=== PATIENT | female | born 1975 | race Caucasian/White ===

== ENCOUNTER 2020-06-13 06:07 | Day surgery (SDC) | payer MEDICARE, MEDICAID, SELFPAY ==
[2020-06-09 16:31] VITALS: BMI 31.8
--- NOTE | 2020-06-12 13:04 | HO.ANESPROP2 ---
Documented by User: Lyubov Prieto 06/12/20 13:08 HPI - Anesthesia Eval Consult details Narrative: 44yo F for Cervical Spinal Cord Simulation Trial s/p thoracic spinal stim implant 02/2020 with [facility] Past Medical History Medical History Asthma Cervical post-laminectomy syndrome Smoker Surgical History Surgical History H/O neck surgery History of back surgery Hx of foot surgery S/P insertion of spinal cord stimulator Social History Social History Alcohol intake: never Smoking Status: Current every day smoker Cigarettes Per Day: 8 Use of substances other than those prescribed or required for medical reasons: No Advance Directives: No Advance Directives Information Provided: No Advance Directives on File: No Meds Allergies Allergy/AdvReac Type Severity Reaction Status Date / Time bupropion [From WELLBUTRIN] Allergy Unknown UPSET Verified 06/09/20 16:23 STOMACH carbamazepine [From TEGRETOL] Allergy Unknown Rash Verified 06/09/20 16:23 cyclobenzaprine Allergy Unknown Rash Verified 06/09/20 16:23 [From FLEXERIL] gabapentin [GABAPENTIN] Allergy Unknown Rash Verified 06/09/20 16:23 latex [LATEX] Allergy Unknown HIVES Verified 06/09/20 16:23 venlafaxine [From EFFEXOR] Allergy Unknown Rash Verified 06/09/20 16:23 barium sulfate AdvReac Unknown Hot Verified 11/22/19 00:00 sweats/nightmares varenicline [From Chantix] AdvReac Nightmare Verified 06/09/20 16:23 tape adhesive Allergy Unknown Rash Uncoded 06/09/20 16:23 Home Medications Medication Instructions Recorded Confirmed Type albuterol sulfate [ProAir HFA] 2 puff INHALATION Q4-6H PRN 06/09/20 06/09/20 History Exam Exam Date and Time: June 12, 2020 1304 Height,Weight and Vital Signs: Height 5 ft 7 in Weight 92.3 kg Assessment and Plan Assessment Anesthesia Assessment: Chart Reviewed Documented by User: Gail Sullivan 06/13/20 07:19 PMFSH Past Medical History Medical History Asthma Cervical post-laminectomy syndrome Smoker Surgical History Surgical History H/O neck surgery History of back surgery Hx of foot surgery S/P insertion of spinal cord stimulator Social History Social History Alcohol intake: never Smoking Status: Current every day smoker Cigarettes Per Day: 8 Use of substances other than those prescribed or required for medical reasons: No Advance Directives: No Advance Directives Information Provided: No Advance Directives on File: No Meds Allergies Allergy/AdvReac Type Severity Reaction Status Date / Time bupropion [From WELLBUTRIN] Allergy Unknown UPSET Verified 06/09/20 16:23 STOMACH carbamazepine [From TEGRETOL] Allergy Unknown Rash Verified 06/09/20 16:23 cyclobenzaprine Allergy Unknown Rash Verified 06/09/20 16:23 [From FLEXERIL] gabapentin [GABAPENTIN] Allergy Unknown Rash Verified 06/09/20 16:23 latex [LATEX] Allergy Unknown HIVES Verified 06/09/20 16:23 venlafaxine [From EFFEXOR] Allergy Unknown Rash Verified 06/09/20 16:23 barium sulfate AdvReac Unknown Hot Verified 11/22/19 00:00 sweats/nightmares varenicline [From Chantix] AdvReac Nightmare Verified 06/09/20 16:23 tape adhesive Allergy Unknown Rash Uncoded 06/09/20 16:23 Home Medications Medication Instructions Recorded Confirmed Type albuterol sulfate [ProAir HFA] 2 puff INHALATION Q4-6H PRN 06/09/20 06/09/20 History Exam Airway Mallampati Class: II TM Dist: >3cm Neck ROM: Full
--- NOTE | 2020-06-12 18:20 | P.HPSUR_ITS ---
Pre-Procedural Eval Section A The patient is an INPATIENT: No The History & Physical has been completed within 30 days and I have reviewed it.: No Section B Chief Complaint: Cervical Post Laminectomy Syndrome Details of Present Illness: Cervicalgia spondylosis of cervical spine Allergies: Allergies Allergy/AdvReac Type Severity Reaction Status Date / Time bupropion [From WELLBUTRIN] Allergy Unknown UPSET Verified 06/09/20 16:23 STOMACH carbamazepine [From TEGRETOL] Allergy Unknown Rash Verified 06/09/20 16:23 cyclobenzaprine Allergy Unknown Rash Verified 06/09/20 16:23 [From FLEXERIL] gabapentin [GABAPENTIN] Allergy Unknown Rash Verified 06/09/20 16:23 latex [LATEX] Allergy Unknown HIVES Verified 06/09/20 16:23 venlafaxine [From EFFEXOR] Allergy Unknown Rash Verified 06/09/20 16:23 barium sulfate AdvReac Unknown Hot Verified 11/22/19 00:00 sweats/nightmares varenicline [From Chantix] AdvReac Nightmare Verified 06/09/20 16:23 tape adhesive Allergy Unknown Rash Uncoded 06/09/20 16:23 Review of Systems Sugical H&P ROS: Negative: Constitution, Cardiovascular, Respiratory, Neurological, Psychiatric, Hem-Onc, Allergic/Immunologic, Gastrointestinal, Genitourinary, Musculoskeletal, Integumentary, Endocrine and Eyes/Ears/Nose/Throat Exam Surgical H&P Exam: Normal: HEENT, Normal: Heart, Normal: Lungs, Normal: Extremi ties, Normal: Abdomen, Normal: Skin and Normal: Neurological Plan Diagnosis/Plan: Unchanged Patient has been examined and remains a candidate for the planned procedure
--- NOTE | 2020-06-12 18:22 | W.PM.OPN ---
Operative Note Operative Note Date of Service: 06/13/20 Narrative: Ms. is very pleasant years old lady who came today into the operating room for trial of spinal cord stimulator for the treatment of post laminectomy. Preoperatively patient received approximately before procedure. After obtaining informed consent patient was brought to the operating room, SHE was positioned prone on operating table, Citizen Of [employer] [place] [employer]hes[employer] monitors were applied and patient was deeply sedated. The patient was taken inside of the operating room where she was positioned prone operating table. Time-out was performed delineating correct site, side, the nature of the procedure, patient's allergy, preoperative antibiotic if needed. All operating room staff was participating in OR time-out procedure. Patient's entire back was prepped with ChloraPrep twice and draped with full body fenestrated drape. Sterilely draped C-arm was brought over operating field and sqare picture of T11-T12 L1 L2 vertebrae as were demonstrated on the screen. Attention FIRST was concentrated on the epidural interspace. The location of the projection of the right pedicle center of the ___ vertebra was found on the skin using C-arm. This location was injected with mixture of lidocaine 2% and Marcaine 0.5% 5 cc. After that 11 blade was used to make a jose carlos on the skin. ____ cm 14 gauge curved introducer epidural needle was inserted through the jose carlos and advanced to epidural interspace. The advancement of the needle was performed on anterior posterior and lateral views. Guitar wire and loss of resistance technique were used to locate epidural space. When guitar wire was spread in the epidural fashion, epidural lead was inserted through the skin and it was advanced to T8 position PRACTICALLY, SLIGHTLY LEFT, SLIGHTLY RIGHT OF THE MIDLINE. After that location of the projection of the LEFT pedicle center of the ____vertebra was found on the skin using C-arm. This location was injected with mixture of lidocaine 2% and Marcaine 0.5% 5 cc. After that 11 blade was used to make a jose carlos on the skin. cm 14 gauge curved introducer epidural needle was inserted through the jose carlos and advanced to epidural interspace. The advancement of the needle was performed on anterior posterior and lateral views. Guitar wire and loss of resistance technique were used to locate epidural space. When guitar wire was spread in the epidural fashion, epidural lead was inserted through the needle and advanced to the At this moment patient was awaken and the epidural leads were connected to the testing device. The patient reported stimulation corresponding to her pain. After satisfactory position of the leads were established the needles were withdrawn, the stylette wires were removed from the epidural leads. The anchoring devices were dislodged on the leads and advanced to the level of the skin. The anchoring devices were sutured with two 0-0 silk sutures to the skin of the patient. The leads were connected to testing device. Bacitracin ointment was applied to the entrance point of bilateral needles. Sterile dressing was applied to the patient's back. The testing device was also glued to the patient's back.
[2020-06-13] VITALS (8 sets, daily range): BP systolic 104–134; BP diastolic 54–92; PULSE 65–95; RESP 12–18; TEMP 36.2–36.3; O2SAT 97–100
[2020-06-13] MEDS: ceFAZolin Sodium/Dextrose,Iso 2 GM/50 ML PIGGYBACK IV (06:46)
[2020-06-13] MEDS: Lactated Ringers 1,000 ML 100 ML IVCONT (06:46)
--- NOTE | 2020-06-13 07:10 | FL_ITS ---
EXAMINATION: XR FLUOROSCOPY WITH IMAGES CLINICAL INFORMATION: Cervical spinal cord stimulation trial COMPARISON: Fluoroscopic spot views 02/22/2020 TECHNIQUE: Fluoroscopy performed by Dr. Moses Hebert. Fluoroscopy time: 2.4 minutes DAP: 16.1 Gycm2 Images: 3 FINDINGS: There are 2 metallic stimulator electrodes seen ascending the posterior spinal canal with the tips approximately overlying mid aspect C2. FL/FL guidance in OR IMPRESSION: Fluoroscopy for pain management procedure.
[2020-06-13 07:24] LABS: UPreg QC Valid YES; Urine Pregnancy NEGATIVE (NEGATIVE)
--- NOTE | 2020-06-13 09:45 | P.BOP_ITS ---
Brief Operative Note Date of Service: 06/13/20 Pre-op diagnosis: Cervical postlaminectomy syndrome Post-op diagnosis: same Procedure: trial of cervical spinal cord stimulator 2 leads [employer]. Implants: None permanent Surgeon: Moses Hebert MD Anesthesia: GLMA Estimated blood loss (mL): 0 Pathology: none sent Condition: stable Disposition: PACU
--- NOTE | 2020-06-13 09:46 | P.OP_ITS ---
Operative Note Operative Note Date of Service: 06/13/20 Narrative: Narrative: Ms. Myers is very pleasant 44 years old lady who came today into the operating room for trial of spinal cord stimulator for the treatment of post laminectomy syndrome cervical.. Preoperatively patient rec eived Antibiotics as per anesthesia record.approximately 30 minutes to 1 hour before procedure. After obtaining informed consent patient was brought to the operating room, SHE was positioned prone on operating table, [place] [employer] monitors were applied and patient was deeply sedated. The patient was taken inside of the operating room where she was positioned prone operating table. Time-out was performed delineating correct site, side, the nature of the procedure, patient's allergy, preoperative antibiotic if needed. All operating room staff was participating in OR time-out procedure. Patient's entire back was prepped with ChloraPrep twice and draped with full body fenestrated drape. Sterilely draped C-arm was brought over operating field and sqare picture of T6-T7 T8 vertebrae as were demonstrated on the screen. Attention FIRST was concentrated on the T6-[id number] interspace. The location of the projection of the right pedicle center of the T8 vertebra was found on the skin using C-arm. This location was injected with mixture of lidocaine 2% and Marcaine 0.5% 5 cc. After that 11 blade was used to make a jose carlos on the skin. 10 cm 14 gauge curved introducer epidural needle was inserted through the jose carlos and advanced to T6-[id number] interspace. the patient was unable to tolerate the minimal stimulation. Anesthesiologist inserted LMA in prone position in induced general anesthesia. The advancement of the needle was performed on anterior posterior and lateral views. Guitar wire and loss of resistance technique were used to locate epidura l space. When guitar wire was spread in the epidural fashion, epidural lead was inserted through the skin and it was advanced to C3 -C4 position , SLIGHTLY RIGHT OF THE MIDLINE. After that location of the projection of the LEFT pedicle center of the T8 vertebra was found on the skin using C-arm. This location was injected with mixture of lidocaine 2% and Marcaine 0.5% 5 cc. After that 11 blade was used to make a jose carlos on the skin. 10 cm 14 gauge c Boby[place]agan introducer epidural needle was inserted through the jose carlos and advanced to T6-T7 interspace. The advancement of the needle was performed on anterior posterior and lateral views. Guitar wire and loss of resistance technique were used to locate epidural space. When guitar wire was spread in the epidural fashion, epidural lead was inserted through the needle and advanced to the C3-C4 cervical epidural space slightly right to existing midline position lead. Due to the patient being under general anesthesia the wake cup test was not performed impedance was checked. After that the needles were withdrawn, the stylette wires were removed from the epidural leads. The anchoring devices were dislodged on the leads and advanced to the level of the skin. The anchoring devices were sutured with two 0-0 silk sutures to the skin of the patient. The leads were connected to testing device. Bacitracin ointment was applied to the entrance point of bilateral needles. Sterile dressing was applied to the patient's back. The testing device was also glued to the patient's back.
--- NOTE | 2020-06-13 10:12 | HO.POSTANES ---
Post Anesthesia Evaluation Post Anesthesia Evaluation Vital Signs: Vital Signs Temp Pulse Resp BP Pulse Ox 06/13/20 09:51 78 18 112/58 L 100 06/13/20 09:46 74 16 112/54 L 98 06/13/20 09:41 69 16 104/63 98 06/13/20 09:36 97.2 F 74 12 122/91 H 97 06/13/20 06:34 97.3 F 95 16 134/78 97 Anesthesia: General LMA Mental Status: Awake Pain Control: Satisfactory Nausea/Vomiting: None Hydration: Adequate Anesthesia-Related Issues: No Anes. Related Issues
== END 2020-06-13 11:05 | disposition home or self-care (01) ==
PROVIDERS: Nurse Practitioner; PCP Nurse Practitioner Family; Visit Provider Anesthesiology
PROC: (CPT 63650; principal; 2020-06-13 07:30)
DX: M96.1 Postlaminectomy syndrome, not elsewhere classified (principal); M47.892 Other spondylosis, cervical region; G89.4 Chronic pain syndrome; F32.9 Major depressive disorder, single episode, unspecified; J45.909 Unspecified asthma, uncomplicated; Z87.891 Personal history of nicotine dependence; Z88.8 Allergy status to other drugs, medicaments and biological substances; Z91.040 Latex allergy status
CPT/HCPCS: 63650 ×2; 81025; C1897; J0690; J2250; J2405

== ENCOUNTER → 2020-06-19 12:58 | Outpatient (BNVA) | payer MEDICARE, MEDICAID, SELFPAY | PROVIDERS: PCP Nurse Practitioner Family; Referring Provider Nurse Practitioner Family; Visit Provider Anesthesiology | DX: M96.1 Postlaminectomy syndrome, not elsewhere classified (principal); G89.4 Chronic pain syndrome | CPT/HCPCS: 99212 ==

== ENCOUNTER 2020-07-19 07:45 | Outpatient (REF) | payer MEDICARE, MEDICAID, SELFPAY ==
--- NOTE | 2020-07-19 07:48 | MM_ITS ---
EXAMINATION: MM SCREENING DIGITAL BREAST TOMOSYNTHESIS, BILATERAL CLINICAL INFORMATION: Screening. Asymptomatic. The lifetime risk of breast cancer based on the Tyrer-Cuzick Model is 18%. COMPARISON: Mammography: 07/14/2019, 07/08/2018, 09/25/2016 TECHNIQUE: Digital breast tomosynthesis is performed in both the craniocaudal and mediolateral oblique views along with computer-aided detection (CAD). Synthesized 2D images are generated from the tomosynthesis. Additional exaggerated right CC view is provided. FINDINGS: There are scattered areas of fibroglandular density (ACR BI-RADS breast composition Category b). There are no significant masses, abnormal calcifications, or other abnormalities. Parenchymal pattern is similar to prior studies. MM/MM tomosynthesis screening BI IMPRESSION: No mammographic evidence of malignancy. ASSESSMENT: BI-RADS 1: Negative RECOMMENDATION: Routine annual mammography screening. This patient's information was entered into a reminder system with a target due date for their next mammogram.
== END 2020-07-19 07:46 | disposition home or self-care (01) ==
LOC: HO.MAMMO 07:45
PROVIDERS: PCP Nurse Practitioner Family; Visit Provider Nurse Practitioner Family
DX: Z12.31 Encounter for screening mammogram for malignant neoplasm of breast (principal)
CPT/HCPCS: 77063; 77067

== ENCOUNTER 2020-10-24 07:25 | Day surgery (SDC) | payer MEDICARE, MEDICAID, SELFPAY ==
--- NOTE | 2020-10-22 13:24 | HO.ANESPROP2 ---
Documented by User: Lyubov Ida 10/22/20 13:25 HPI - Anesthesia Eval Consult details Narrative: 44yo F for Cervical Spinal Cord Stimulation Implant s/p trial 06/2020 with [facility] (converted from MAC because pt couldn't tolerate pain without comprising respiration) PMFSH Active Problems Active Problems: All Active Problems (Updated 06/19/20 @ 13:26 by Moses Hebert MD) Chronic pain syndrome (Acute) Cervical post-laminectomy syndrome (Acute) Past Medical History Medical History Anxiety Asthma Cervical post-laminectomy syndrome Cervical vertebral fusion Chronic pain syndrome Chronic pain syndrome Depression Smoker Surgical History Surgical History H/O cervical discectomy H/O neck surgery History of back surgery Hx of foot surgery S/P insertion of spinal cord stimulator Social History Social History Alcohol intake: never Smoking Status: Current every day smoker Cigarettes Per Day: 8 Advance Directives: No Advance Directives Information Provided: Yes Recently lost weight without trying: No Meds Allergies Allergy/AdvReac Type Severity Reaction Status Date / Time bupropion [From WELLBUTRIN] Allergy Unknown UPSET Verified 10/20/20 11:02 STOMACH carbamazepine [From TEGRETOL] Allergy Unknown Rash Verified 10/20/20 11:02 cyclobenzaprine Allergy Unknown Rash Verified 10/20/20 11:02 [From FLEXERIL] gabapentin [GABAPENTIN] Allergy Unknown Rash Verified 10/20/20 11:02 latex [LATEX] Allergy Unknown HIVES Verified 10/20/20 11:02 venlafaxine [From EFFEXOR] Allergy Unknown Rash Verified 10/20/20 11:02 barium sulfate AdvReac Unknown Hot Verified 10/20/20 11:02 sweats/nightmares varenicline [From Chantix] AdvReac Nightmare Verified 10/20/20 11:02 tape adhesive Allergy Unknown Rash Uncoded 10/20/20 11:02 Home Medications Medication Instructions Recorded Confirmed Last Taken Type adapalene 0.1 % topical cream appl TOPICAL 06/19/20 06/19/20 Unknown History clindamycin phosphate 1 % lotion TOPICAL BEDTIME 06/19/20 06/19/20 Unknown History Exam Exam Date and Time: October 22, 2020 1324 Assessment and Plan Assessment Anesthesia Assessment: Chart Reviewed Documented by User: Natasha Foote 10/24/20 09:03 [facility] Past Medical History Medical History Anxiety Asthma Cervical post-laminectomy syndrome Cervical vertebral fusion Chronic pain syndrome Chronic pain syndrome Depression Smoker Surgical History Surgical History H/O cervical discectomy H/O neck surgery History of back surgery Hx of foot surgery S/P insertion of spinal cord stimulator Social History Social History Alcohol intake: never Smoking Status: Current every day smoker Cigarettes Per Day: 8 Advance Directives: No Advance Directives Information Provided: Yes Recently lost weight without trying: No Meds Allergies Allergy/AdvReac Type Severity Reaction Status Date / Time bupropion [From WELLBUTRIN] Allergy Unknown UPSET Verified 10/20/20 11:02 STOMACH carbamazepine [From TEGRETOL] Allergy Unknown Rash Verified 10/20/20 11:02 cyclobenzaprine Allergy Unknown Rash Verified 10/20/20 11:02 [From FLEXERIL] gabapentin [GABAPENTIN] Allergy Unknown Rash Verified 10/20/20 11:02 latex [LATEX] Allergy Unknown HIVES Verified 10/20/20 11:02 venlafaxine [From EFFEXOR] Allergy Unknown Rash Verified 10/20/20 11:02 barium sulfate AdvReac Unknown Hot Verified 10/20/20 11:02 sweats/nightmares varenicline [From Chantix] AdvReac Nightmare Verified 10/20/20 11:02 tape adhesive Allergy Unknown Rash Uncoded 10/20/20 11:02 Home Medications Medication Instructions Recorded Confirmed Last Taken Type adapalene 0.1 % topical cream appl TOPICAL 06/19/20 06/19/20 Unknown History clindamycin phosphate 1 % lotion TOPICAL BEDTIME 06/19/20 06/19/20 Unknown History Exam Airway Mallampati Class: II TM Dist: >3cm Neck ROM: Limited Loose/Missing/Broken Teeth: No Heart: RRR Lungs: CTA Assessment and Plan Assessment Anesthesia Assessment: Anesthesia Plan Discussed and Chart Reviewed Final Anesthetic Review NPO: Yes ASA Class: II Final Preanesthetic Review: Meds/Allgs Chart Reviewed, Consent Obtained/Reviewed and Anes Risks/Benef Reviewed Patient Risk: Intermediate Procedure Risk: Intermediate Anesthetic Plan Anesthetic Plan: GA Disposition: Standard PACU
[2020-10-24] VITALS (7 sets, daily range): BP systolic 111–131; BP diastolic 54–84; PULSE 80–119; RESP 16–20; TEMP 36.1–36.3; O2SAT 90–99; BMI 32.4
--- NOTE | ~2020-10-24 | FL_ITS ---
EXAMINATION: XR FLUOROSCOPY WITH IMAGES CLINICAL INFORMATION: Spinal stimulator implant. COMPARISON: Cervical radiographs 08/23/2017. TECHNIQUE: Fluoroscopy performed by Dr. Moses Hebert. Fluoroscopy time: 12.8 minutes DAP: 40.8 Gycm2 Images: 2 FINDINGS: There are spinal stimulator electrodes overlying the posterior cervical spinal canal with tips at level C2. Again, there are postsurgical changes consistent with prior anterior cervical fusion. FL/FL guidance in OR IMPRESSION: Fluoroscopy for pain management procedures.
[2020-10-24 08:10] LABS: UPreg QC Valid YES; Urine Pregnancy NEGATIVE (NEGATIVE)
[2020-10-24] MEDS: Lactated Ringers 1,000 ML 100 ML IVCONT (08:11)
--- NOTE | 2020-10-24 08:45 | MHC.SHP ---
Pre-Procedural Eval Section A The patient is an INPATIENT: No Changes since office visit: Yes Patient answered all questions The History & Physical has been completed within 30 days and I have reviewed it.: No Section B Chief Complaint: cervical post-laminectomy syndrome Details of Present Illness: as above Relevant Family History (Specify if Yes): No Relevant Social History: None Present Medications: see Short Stay Collaborative assessment Medical History: No relevant PMH History of Previous Operations: Relevant previous surgery/procedure and date(s) Allergies: Allergies Allergy/AdvReac Type Severity Reaction Status Date / Time bupropion [From WELLBUTRIN] Allergy Unknown UPSET Verified 10/20/20 11:02 STOMACH carbamazepine [From TEGRETOL] Allergy Unknown Rash Verified 10/20/20 11:02 cyclobenzaprine Allergy Unknown Rash Verified 10/20/20 11:02 [From FLEXERIL] gabapentin [GABAPENTIN] Allergy Unknown Rash Verified 10/20/20 11:02 latex [LATEX] Allergy Unknown HIVES Verified 10/20/20 11:02 venlafaxine [From EFFEXOR] Allergy Unknown Rash Verified 10/20/20 11:02 barium sulfate AdvReac Unknown Hot Verified 10/20/20 11:02 sweats/nightmares varenicline [From Chantix] AdvReac Nightmare Verified 10/20/20 11:02 tape adhesive Allergy Unknown Rash Uncoded 10/20/20 11:02 Review of Systems Sugical H&P ROS: Negative: Cardiovascular, Respiratory, Neurological, Psychiatric, Hem-Onc, Allergic/Immunologic, Gastrointestinal, Genitourinary, Musculoskeletal, Integumentary, Endocrine and Eyes/Ears/Nose/Throat and Yes, Specify: Constitution (obesity) Exam Surgical H&P Exam: Normal: HEENT, Normal: Heart, Normal: Lungs, Normal: Extremities, Normal: Abdomen, Normal: Skin and Normal: Neurological Plan Diagnosis/Plan: Unchanged I have reviewed the history and physical and performed a pertinent physical examination on my patient. No changes have occurred unless specified.
--- NOTE | 2020-10-24 08:48 | P.OP_ITS ---
Operative Note Operative Note Date of Service: 10/24/20 Narrative: Ms. Cain is very pleasant 44 y.o. lady who came today into the operating room for implantation of spinal cord stimulator for the treatment of pain related to cervical spine postlaminectomy syndrome. He had successful t rial of spinal cord stimulation. Preoperatively patient received antibiotic _approximately 30 minutes before the procedure. After obtaining informed consent patient was brought to the operating room, she was positioned supine on the stretcher, [employer] monitors were applied and patient was induced with GETA. After that the patient was transferred to the OR table prone, all pressure points were protected. Time-out was performed delineating correct site, side, the nature of the procedure, patient's allergy, preoperative antibiotic. All operating room staff was participating in OR time-out procedure. Patient's entire back was prepped with ChloraPrep twice and draped with full body drape including Ioban film. Sterilely draped C-arm was brought over op erating field and square picture of T7 -T8 vertebrae were demonstrated on the screen. THE PROJECTION OF T8-T9 SPINAL PROCESSES TO THE SKIN WERE INFILTRATED WITH LIDOCAINE 2% MIXED WITH BUPIVACAINE 0.5%. Six CM LONG VERTICAL INCISION using a 10 blade scalpel WAS PERFORMED IN STRICT MIDLINE VERTICAL FASHION. THOROUGH HEMOSTASIS WAS PERFORMED using electrocautery. Thorough tissue dissections was performed until prevertebral fascia was freed from overlying tissues. Attention FIRST was concentrated on the RIGHT t7-t8 epidural interspace. The location of the projection of the right pedicle center of the T9 vertebra was found on the prevertebral fascia using C-arm. This location was injected with mixture of lidocaine 2% and Marcaine 0.5% 5 cc in approximate direction of needle advancement.. After that 10 cm 14 gauge straight introducer epidural needle was inserted through the fascia and advanced toward T7-T8 epidural interspace. The advancement of the needle was performed on anterior posterior and lateral views. Guitar wire and loss of resistance technique were used to locate epidural space. When guitar wire was spread in the epidural fashion, epidural lead was inserted through the skin and it was advanced to C position POSTERIOR EPIDURAL SPACE slightly RIGHT TO THE MIDLINE. After that location of the projection of the LEFT pedicle center of the T9 vertebra was found -using C-arm. This location was injected with mixture of lidocaine 2% and Marcaine 0.5% 5 cc.. . 10 cm 14 gauge curved introducer epidural needle was inserted through the fascia and advanced to T7-T8 epidural interspace. The advancement of the needle was performed on anterior posterior and lateral views. Guitar wire and loss of resistance technique were used to locate epidural space. When guitar wire was spread in the epidural fashion, epidural lead was inserted through the needle and advanced to the T9 POSTERIOR EPIDURAL SPACE SLIGHTLY LEFT to the existing LEAD. THE LOCATION OF BOTH LEADS WAS VERIFIED ON ANTERIOR POSTERIOR AND LATERAL VIEWS. IMPEDANCE WAS VERIFIED. THE WAKE p trial was not performed - see the trials reports. After satisfactory position of the leads were established the needles were withdrawn, the stylette wires were removed from the epidural leads. The anchoring devices were dislodged on the leads and advanced to the level of the skin. The anchoring devices were advanced along the epidural leads and dislodged and epidural leads at the level of prevertebral fascia. They were sutured to prevertebral fascia with 2 separate etibone sutures per each anchori ng device. The fixating screws was fixed until 3 clicks were heard on each anchoring device. After that the wound was irrigated with copious amount of Vancomycin containing normal saline and packed with Vancomycin soaked 4 x 4. After that attention was concentrated on the right loin of the patient where her battery was implanted. 6 cm long horizontal incision was performed in the proximity of previous incision. Thorough hemostasis was performed. The old battery was removed. It was disconnected from epidural lumbar leads. The new battery was brought over the operating field and connected to the old lumbar thoracic leads. The impedance was satisfactory. After that tunneling device was used to connect both wounds. Cervical leads from the thoracic wound were dislodged into the loin wound. They were connected to the alpha technology battery. After that both wounds were thoroughly irrigated with normal saline containing vancomycin. Sutures were applied to the most superior central and most superior medial corners of the loin wound. Those sutures were tied and the battery was inserted into the pocket. After that 0 Vicryl sutures were used to close both wounds. To 0 Vicryl was used to approximate the level of the skin. [place] were applied to skin level. Bacitracin ointment was smear done the staple line. Sterile dressing was applied. Abdominal binder was applied. The patient was transferred to the stretcher, awaken, extubated and in stable condition transferred to PACU. She recovered uneventfully. She went home without immediate complications.
--- NOTE | 2020-10-24 13:55 | P.BOP_ITS ---
Brief Operative Note Date of Service: 10/24/20 Pre-op diagnosis: postlaminectomy syndrome Post-op diagnosis: same Procedure: implantation of the cervical Spinal cord stimulator [employer] Implants: Alpha battery and to cervical 70 cm epidural electrode a hakan. Surgeon: Moses Hebert MD Anesthesia: GETA Estimated blood loss (mL): 15 Pathology: none sent Condition: stable Disposition: PACU
== END 2020-10-24 14:16 | disposition home or self-care (01) ==
PROVIDERS: Nurse Practitioner; PCP Nurse Practitioner Family; Visit Provider Anesthesiology
PROC: (CPT 63685; principal; 2020-10-24 09:00)
DX: M96.1 Postlaminectomy syndrome, not elsewhere classified (principal); G89.4 Chronic pain syndrome; M54.2 Cervicalgia; Z98.1 Arthrodesis status; J45.909 Unspecified asthma, uncomplicated; F32.9 Major depressive disorder, single episode, unspecified; Z79.899 Other long term (current) drug therapy; F17.210 Nicotine dependence, cigarettes, uncomplicated
CPT/HCPCS: 63685; 63650 ×2; 81025; C1713; C1778; C1787; C1820; J0131; J0330; J0690; J1100; J2250; J2370; J2405; J3010; J3370

== ENCOUNTER → 2020-10-30 14:20 | Outpatient (BNVA) | payer MEDICARE, MEDICAID, SELFPAY | PROVIDERS: PCP Nurse Practitioner Family; Visit Provider Anesthesiology | DX: M96.1 Postlaminectomy syndrome, not elsewhere classified (principal); G89.4 Chronic pain syndrome; Z96.82 Presence of neurostimulator | CPT/HCPCS: 99212 ==

== ENCOUNTER → 2020-11-06 14:35 | Outpatient (BNVA) | payer MEDICARE, MEDICAID, SELFPAY | PROVIDERS: PCP Nurse Practitioner Family; Visit Provider Anesthesiology | DX: M96.1 Postlaminectomy syndrome, not elsewhere classified (principal); G89.4 Chronic pain syndrome | CPT/HCPCS: 99212 ==

== ENCOUNTER 2022-03-11 09:07 | Outpatient (REF) | payer MEDICARE, MEDICAID, SELFPAY ==
[2022-03-11 11:38] LABS: MANUAL DIFF FLAG NO
[2022-03-11 11:44] LABS: Basophils Percent Auto 0.6 % (0-2); Eosinophils Absolute Auto 0.2 X10*3/uL (0.0-0.4); Eosinophils Percent Auto 3.1 % (0-4); Hematocrit 40.2 % (37.0-47.0); Hemoglobin 12.9 g/dl (12.0-16.0); Imm Gran Abs Auto 0.03 X10*3/uL (0.00-0.03); Imm Gran Pct Auto 0.4 % (0.0-0.4); Lymphocytes Absolute Auto 2.1 X10*3/uL (1.2-4.9); Lymphocytes Percent Auto 28.7 % (20-40); Mean Corpuscular HGB Conc 32.1 g/dl (31.0-35.0); Mean Corpuscular Hemoglobin 31.1 pg (27.0-33.0); Mean Corpuscular Volume 96.9 fL (80.0-98.0); Mean Platelet Volume 11.4 fL (9.4-12.3); Monocytes Absolute Auto 0.7 X10*3/uL (0.1-1.2); Monocytes Percent Auto 9.1 % (2-11); Neutrophils Absolute Auto 4.2 x10*3/uL (2.0-8.3); Neutrophils Percent Auto 58.1 % (45-73); Platelet Count 227 X10*3/uL (160-400); Red Blood Count 4.15 X10*6/uL (4.20-5.50); Red Cell Distribution Width 13.4 % (11.0-16.0); White Blood Count 7.2 X10*3/uL (4.8-10.8)
[2022-03-11 12:11] LABS: Alanine Aminotransferase 9 U/L (0-31); Albumin Level 4.2 g/dL (3.5-5.0); Alkaline Phosphatase 60 U/L (39-117); Anion Gap 15 (12-20); Aspartate Amino Transferase 12 U/L (5-31); Bilirubin Total 0.2 mg/dL (0.0-1.0); Blood Urea Nitrogen 14 mg/dL (9-16); Calcium 9.4 mg/dL (8.4-10.2); Carbon Dioxide 27 mmol/L (22-29); Chloride 104 mmol/L (96-108); Cholesterol 192 mg/dL; Estimated Glomerular Filt Rate > 60; Glucose Fasting 98 mg/dL (60-99); HDL Cholesterol 72 mg/dL; LDL Cholesterol Calculated 105 mg/dl; Potassium 4.5 mmol/L (3.3-5.1); Sodium 141 mmol/L (135-145); Triglycerides 75 mg/dL
[2022-03-11 12:15] LABS: TSH reflex Free T4 4.97 uIU/mL (0.32-4.0)
[2022-03-11 13:26] LABS: Free T4 (Free Thyroxine) 0.87 ng/dL (0.71-1.85)
[2022-03-11 13:30] LABS: Appearance Urine Clear; Color Urine Yellow; Glucose Urine UA Negative (Negative); Leukocyte Esterase Urine Small (1+) (Negative); Nitrite Urine Negative (Negative); PH 5.5 (5.0-9.0); Specific Gravity - Urine 1.015 (1.005-1.025); Urine Blood Large (3+) (Negative); Urine Ketones Negative (Negative); Urine Protein Negative (Neg-Trace)
[2022-03-11 13:44] LABS: Bacteria Urine 2+ (None Seen); Hyaline Casts Urine 0-2 /LPF (0-2); RBC Urine 0-2 /HPF (0-2); UACC Culture Trigger YES
== END 2022-03-11 09:08 | disposition home or self-care (01) ==
LOC: HO.HMGCLDS 09:07
PROVIDERS: PCP Nurse Practitioner Family; Visit Provider Nurse Practitioner Family
DX: G89.4 Chronic pain syndrome (principal)
CPT/HCPCS: 36415; 80053; 80061; 81001; 81003; 84439; 84443; 85025; 87086

== ENCOUNTER → 2022-04-08 08:41 | Outpatient (BNVA) | payer MEDICARE, MEDICAID, SELFPAY | PROVIDERS: PCP Nurse Practitioner Family; Visit Provider Physician Assistant | DX: Z01.818 Encounter for other preprocedural examination (principal); Z80.0 Family history of malignant neoplasm of digestive organs | CPT/HCPCS: 99202 ==

== ENCOUNTER 2022-04-28 10:54 | Outpatient (REF) | payer MEDICARE, SELFPAY ==
[2022-04-28 14:23] LABS: CT PCR NOT DETECTED (Not Detect.); NG PCR NOT DETECTED (Not Detect.)
[2022-04-29 09:45] LABS: BV Int Neg Control Negative (Negative); BV Int Pos Control Positive (Positive)
[2022-04-30 21:43] LABS: HPV mRNA E6/E7 rflx Not Detected (Not Detected)
== END 2022-04-28 10:55 | disposition home or self-care (01) ==
LOC: HO.LNP 10:54
PROVIDERS: Visit Provider Advanced Practice Midwife
DX: Z01.419 Encounter for gynecological examination (general) (routine) without abnormal findings (principal); Z11.51 Encounter for screening for human papillomavirus (HPV); Z20.2 Contact with and (suspected) exposure to infections with a predominantly sexual mode of transmission; N89.8 Other specified noninflammatory disorders of vagina
CPT/HCPCS: 87480; 87491; 87510; 87591; 87624; 87660; 88142

== ENCOUNTER 2022-04-29 11:51 | Outpatient (REF) | payer MEDICARE, SELFPAY ==
[2022-04-29 14:27] LABS: TSH reflex Free T4 1.99 uIU/mL (0.32-4.0)
[2022-04-30 06:56] LABS: Syphilis Screen Nonreactive (Nonreactive)
[2022-04-30 07:59] LABS: HBc Num1 0.07 S/CO (0.00-0.79); HIV AB/AG Nonreactive (Nonreactive); HIV Num 1 0.06 S/CO (0.00-0.99); Hepatitis B Core Antibody Nonreactive (Nonreactive); ~HepC Num1 0.12 S/CO (0.00-0.79); ~Hepatitis C Antibody Nonreactive (Nonreactive)
[2022-05-01 06:12] LABS: Thyroid Peroxidase Antibodies 177 IU/mL (<9)
== END 2022-04-29 11:52 | disposition home or self-care (01) ==
LOC: HO.HMGCLDS 11:51
PROVIDERS: Absent Provider Advanced Practice Midwife; PCP Nurse Practitioner Family; Visit Provider Nurse Practitioner Family
DX: R79.89 Other specified abnormal findings of blood chemistry (principal); Z20.2 Contact with and (suspected) exposure to infections with a predominantly sexual mode of transmission
CPT/HCPCS: 36415; 84443; 86376; 86704; 86780; 86803; 87389

== ENCOUNTER 2022-05-25 08:54 | Outpatient (REF) | payer MEDICARE, SELFPAY ==
--- NOTE | ~2022-05-25 | MM_ITS ---
EXAMINATION: MM SCREENING DIGITAL BREAST TOMOSYNTHESIS, BILATERAL CLINICAL INFORMATION: Screening. Asymptomatic. The lifetime risk of breast cancer based on the Tyrer-Cuzick Model is 13%. COMPARISON: Mammography: 07/19/2020, 07/14/2019, 07/08/2018 TECHNIQUE: Digital breast tomosynthesis is performed in both the craniocaudal and mediolateral oblique views along with computer-aided detection (CAD). Synthesized 2D images are generated from the tomosynthesis. FINDINGS: There are scattered areas of fibroglandular density (ACR BI-RADS breast composition Category b). There are no significant masses, abnormal calcifications, or other abnormalities. Findings fibronodular pattern is similar to prior studies. No developing density or interval architectural abnormality. No significant changes. MM/MM tomosynthesis screening BI IMPRESSION: No mammographic evidence of malignancy. ASSESSMENT: BI-RADS 1: Negative RECOMMENDATION: Routine annual mammography screening. This patient's information was entered into a reminder system with a target due date for their next mammogram.
== END 2022-05-25 08:55 | disposition home or self-care (01) ==
LOC: HO.MAMMO 08:54
PROVIDERS: PCP Nurse Practitioner Family; Visit Provider Advanced Practice Midwife
DX: Z12.31 Encounter for screening mammogram for malignant neoplasm of breast (principal)
CPT/HCPCS: 77063; 77067

== ENCOUNTER 2022-06-30 11:36 | Outpatient (REF) | payer MEDICARE, SELFPAY ==
[2022-06-30 12:57] LABS: Influenza A PCR POSITIVE (Negative); Influenza B PCR NEGATIVE (Negative); Resp Syncy Virus RNA Qual PCR NEGATIVE (Negative); SARS COV2 PCR INHOUSE NEGATIVE (Negative)
== END 2022-06-30 11:37 | disposition home or self-care (01) ==
LOC: HO.LNP 11:36
PROVIDERS: Visit Provider Nurse Practitioner Family
DX: Z20.822 Contact with and (suspected) exposure to COVID-19 (principal); B34.9 Viral infection, unspecified
CPT/HCPCS: 0241U

== ENCOUNTER 2022-10-26 10:42 | Outpatient (REF) | payer MEDICARE, SELFPAY ==
[2022-10-26 14:08] LABS: MANUAL DIFF FLAG NO
[2022-10-26 14:13] LABS: Basophils Percent Auto 0.5 % (0-2); Eosinophils Absolute Auto 0.2 X10*3/uL (0.0-0.4); Eosinophils Percent Auto 2.9 % (0-4); Hematocrit 41.1 % (37.0-47.0); Hemoglobin 12.8 g/dl (12.0-16.0); Imm Gran Abs Auto 0.01 X10*3/uL (0.00-0.03); Imm Gran Pct Auto 0.2 % (0.0-0.4); Lymphocytes Percent Auto 33.7 % (20-40); Mean Corpuscular HGB Conc 31.1 g/dl (31.0-35.0); Mean Corpuscular Hemoglobin 30.3 pg (27.0-33.0); Mean Corpuscular Volume 97.4 fL (80.0-98.0); Mean Platelet Volume 11.5 fL (9.4-12.3); Monocytes Absolute Auto 0.4 X10*3/uL (0.1-1.2); Monocytes Percent Auto 7.6 % (2-11); Neutrophils Absolute Auto 3.2 x10*3/uL (2.0-8.3); Neutrophils Percent Auto 55.1 % (45-73); Platelet Count 201 X10*3/uL (160-400); Red Blood Count 4.22 X10*6/uL (4.20-5.50); Red Cell Distribution Width 13.2 % (11.0-16.0); White Blood Count 5.8 X10*3/uL (4.8-10.8)
[2022-10-26 14:40] LABS: Alanine Aminotransferase 13 U/L (0-31); Albumin Level 4.2 g/dL (3.5-5.0); Alkaline Phosphatase 58 U/L (39-117); Anion Gap 13 (12-20); Aspartate Amino Transferase 14 U/L (5-31); Bilirubin Total 0.3 mg/dL (0.0-1.0); Blood Urea Nitrogen 17 mg/dL (9-16); Calcium 9.3 mg/dL (8.4-10.2); Carbon Dioxide 27 mmol/L (22-29); Chloride 106 mmol/L (96-108); Cholesterol 202 mg/dL; Estimated Glomerular Filt Rate > 60; Glucose Fasting 90 mg/dL (60-99); HDL Cholesterol 71 mg/dL; LDL Cholesterol Calculated 118 mg/dl; Potassium 4.7 mmol/L (3.3-5.1); Sodium 141 mmol/L (135-145); Total Protein 6.7 g/dL (6.5-8.0); Triglycerides 66 mg/dL
[2022-10-26 14:43] LABS: TSH reflex Free T4 5.01 uIU/mL (0.32-4.0)
[2022-10-26 15:47] LABS: Free T4 (Free Thyroxine) 0.82 ng/dL (0.71-1.85)
== END 2022-10-26 10:43 | disposition home or self-care (01) ==
LOC: HO.HMGCLDS 10:42
PROVIDERS: PCP Nurse Practitioner Family; Visit Provider Nurse Practitioner Family
DX: F32.9 Major depressive disorder, single episode, unspecified (principal); F41.9 Anxiety disorder, unspecified; E78.5 Hyperlipidemia, unspecified
CPT/HCPCS: 36415; 80053; 80061; 84439; 84443; 85025

== ENCOUNTER 2023-02-23 10:26 | Outpatient (AMB) | payer MEDICARE, SELFPAY ==
[2023-02-23 11:09] VITALS: BP 110/70; PULSE 82; O2SAT 95; BMI 26.3
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
== END 2023-02-23 11:45 | disposition home or self-care (01) ==
PROVIDERS: PCP Nurse Practitioner Family; Visit Provider Nurse Practitioner Family
DX: Z00.00 Encounter for general adult medical examination without abnormal findings (principal)
CPT/HCPCS: 99396